=== PATIENT | male | born 1955 | race Two or more races ===

== ENCOUNTER 2019-03-15 12:05 | Inpatient (IN) | payer MEDICARE, OTHER ==
[~2019-03-15] VITALS: Ht 170.2 cm; Wt 65.8 kg
[~2019-03-15 12:05] MED LIST: CARV12.545 PO; MINO2.5T19 PO
[2019-03-15 15:24] LABS: BASOPHILS % 0.5 % (0.0-2.0); EOSINOPHILS % 5.2 % (0.0-5.0); HEMATOCRIT. 32.2 % (42.0-52.0); HEMOGLOBIN. 10.7 g/dL (14.0-18.0); LYMPHOCYTES % 20.7 % (20.0-50.0); MEAN CORPUSCULAR HEMOGLOBIN 31.5 pg (28.0-32.0); MEAN CORPUSCULAR VOLUME 94.8 fL (80.0-94.0); MEAN PLATELET VOLUME 9.3 fl (7.4-10.4); MONOCYTES % 9.4 % (2.0-8.0); NEUTROPHILS % 64.2 % (40.0-76.0); PLATELET 290 x1000/uL (130-400); RED CELL DISTRIBUTION WIDTH 15.7 % (11.6-14.6)
[2019-03-15 15:29] LABS: CHLORIDE 101 mEq/L (98-107)
[2019-03-15 15:36] LABS: ETHANOL BLOOD < 10 mg/dL
[2019-03-15] MEDS ORDERED: LABETALOL 5MG/ML SYR 20 MG/4 ML SYRINGE IV ONE (16:45)
[2019-03-15] MEDS ORDERED: ONDANSETRON HCL 4MG/2ML INJ IV PRN (18:45)
[2019-03-15] MEDS ORDERED: DEXTROSE 50% WATER 50ML SYRINGE IV PRN (18:45)
[2019-03-15] MEDS ORDERED: GUAIFENESIN 200MG/10ML SUGAR FREE UDC PO PRN (18:45)
[2019-03-15] MEDS ORDERED: MAGNESIUM/ALUMINUM HYDROXIDE/SIMETHICONE 30ML UDC PO PRN (18:45)
[2019-03-15] MEDS ORDERED: HYDROCODONE/ACETAMINOPHEN 5/325MG TABLET PO PRN (18:45)
[2019-03-15] MEDS ORDERED: ACETAMINOPHEN 325MG TABLET PO PRN (18:45)
[2019-03-15] MEDS ORDERED: CLONIDINE 0.1MG TABLET PO PRN (18:45)
[2019-03-15] MEDS ORDERED: DOCUSATE SODIUM 100MG CAPSULE PO PRN (18:45)
[2019-03-15] MEDS ORDERED: IPRATROPIUM/ALBUTEROL 0.5-3(2.5)MG/3ML NEB NEB PRN (18:45)
[2019-03-15] MEDS ORDERED: ACETAMINOPHEN 650MG SUPP PR PRN (18:45)
[2019-03-15] MEDS ORDERED: MINOXIDIL 2.5MG TABLET PO NR (19:00)
[2019-03-15] MEDS ORDERED: CARVEDILOL 12.5MG TABLET PO NR (19:00)
[2019-03-15] MEDS ORDERED: HYDRALAZINE 20MG/ML VIAL IV PRN (19:15)
[2019-03-15] MEDS ORDERED: AMLODIPINE 5MG TABLET PO NR (23:00)
[2019-03-15] MEDS: LORAZEPAM 0.5MG TABLET PO PRN (23:00)
[2019-03-15] MEDS ORDERED: HYDRALAZINE 20MG/ML VIAL IV NR (23:30)
[2019-03-16 01:05] LABS: CREATINE KINASE MB FRACTION 5.6 ng/mL (0.5-3.6)
[2019-03-16 01:42] VITALS: BP 146/78
[2019-03-16] MEDS: DIPHENHYDRAMINE 50MG/ML VIAL IV PRN (02:35)
[2019-03-16] MEDS ORDERED: ATOR20TA65 MT (02:49)
[2019-03-16] MEDS ORDERED: LABE100T5 MT (02:49)
[2019-03-16] MEDS ORDERED: CALC667C MT (02:49)
[2019-03-16] MEDS ORDERED: POTA20TA82 MT (02:49)
[2019-03-16] MEDS ORDERED: FAMO20TA8 MT (02:49)
[2019-03-16] MEDS ORDERED: ASPI-1497 MT (02:49)
[2019-03-16] MEDS ORDERED: AMLO10TA80 MT (02:49)
[2019-03-16] MEDS ORDERED: LISI-604 MT (02:49)
[2019-03-16] MEDS ORDERED: ERGO400C MT (02:49)
[2019-03-16 04:26] VITALS: BP 128/55
[2019-03-16] MEDS: BLOOD SUGAR DIAGNOSTIC STRIP TEST SCH ×4 (06:13→21:20)
[2019-03-16] MEDS: HYDRALAZINE HCL 50MG TABLET PO SCH ×3 (06:26→22:00)
[2019-03-16] MEDS: INSULIN LISPRO 100 UNITS/ML SUBCUT SCH ×4 (06:58→21:00)
[2019-03-16] MEDS ORDERED: CALCIUM ACETATE 667MG CAPSULE PO SCH (07:40)
[2019-03-16 08:00] VITALS: BP 137/54
[2019-03-16] MEDS: CARVEDILOL 12.5MG TABLET PO SCH ×2 (09:39→20:39)
[2019-03-16] MEDS: AMLODIPINE 5MG TABLET PO SCH ×2 (09:39→20:40)
[2019-03-16] MEDS: MINOXIDIL 2.5MG TABLET PO SCH ×2 (09:39→17:00)
[2019-03-16 12:00] VITALS: BP 133/52
[2019-03-16] MEDS ORDERED: CALCIUM ACETATE 667 MG TABLET PO SCH (13:30)
[2019-03-16 16:00] VITALS: BP 104/49
[2019-03-16 16:04] LABS: BASOPHILS % 0.4 % (0.0-2.0); EOSINOPHILS % 7.5 % (0.0-5.0); HEMATOCRIT. 37.7 % (42.0-52.0); HEMOGLOBIN. 12.1 g/dL (14.0-18.0); MEAN CORPUSCULAR HEMOGLOBIN 31.1 pg (28.0-32.0); MEAN CORPUSCULAR VOLUME 97.1 fL (80.0-94.0); MEAN PLATELET VOLUME 8.8 fl (7.4-10.4); MONOCYTES % 6.9 % (2.0-8.0); NEUTROPHILS % 66.2 % (40.0-76.0); PLATELET 341 x1000/uL (130-400); RED BLOOD CELL COUNT 3.88 mill/uL (4.7-6.1); RED CELL DISTRIBUTION WIDTH 15.5 % (11.6-14.6)
[2019-03-16 16:14] LABS: CHLORIDE 101 mEq/L (98-107)
[2019-03-16 16:18] LABS: PHOSPHORUS 5.4 mg/dL (2.5-4.9)
[2019-03-16 16:19] LABS: LDL CHOLESTEROL 71 mg/dL (5-100)
[2019-03-16 16:21] LABS: CREATINE KINASE 594 IU/L (39-308); HDL CHOLESTEROL 56 mg/dL (40-59); T4 FREE 1.12 ng/dL (0.76-1.46); TOTAL IRON BINDING CAPACITY 185 ug/dL (250-450)
[2019-03-16 16:23] LABS: CREATINE KINASE MB FRACTION 7.6 ng/mL (0.5-3.6)
[2019-03-16 17:14] LABS: VITAMIN B12 SERUM 391 pg/mL (211-911)
[2019-03-16] MEDS ORDERED: POTASSIUM CHLORIDE 20MEQ TABLET SR PO NR (17:30)
[2019-03-16] MEDS: CALCIUM ACETATE 667 MG TABLET PO SCH (18:27)
[2019-03-16] MEDS ORDERED: POTASSIUM CHLORIDE INJ 40 MEQ in DEXT 5% WATER 500 ML IV NR (18:30)
[2019-03-16 20:00] VITALS: BP 101/66
[2019-03-16] MEDS: MIRTAZAPINE 15MG TABLET PO SCH (20:39)
[2019-03-17] VITALS: BP 102/45
[2019-03-17 04:00] VITALS: BP 123/48
[2019-03-17] MEDS: HYDRALAZINE HCL 50MG TABLET PO SCH ×3 (06:49→22:00)
[2019-03-17] MEDS: BLOOD SUGAR DIAGNOSTIC STRIP TEST SCH ×4 (06:49→20:32)
[2019-03-17] MEDS: INSULIN LISPRO 100 UNITS/ML SUBCUT SCH ×4 (06:54→20:38)
[2019-03-17 07:09] LABS: BASOPHILS % 0.5 % (0.0-2.0); EOSINOPHILS % 6.6 % (0.0-5.0); HEMATOCRIT. 31.2 % (42.0-52.0); HEMOGLOBIN. 10.3 g/dL (14.0-18.0); LYMPHOCYTES % 17.3 % (20.0-50.0); MEAN CORPUSCULAR HEMOGLOBIN 31.9 pg (28.0-32.0); MEAN CORPUSCULAR VOLUME 96.7 fL (80.0-94.0); MEAN PLATELET VOLUME 8.5 fl (7.4-10.4); NEUTROPHILS % 66.6 % (40.0-76.0); PLATELET 332 x1000/uL (130-400); RED BLOOD CELL COUNT 3.23 mill/uL (4.7-6.1); RED CELL DISTRIBUTION WIDTH 15.5 % (11.6-14.6)
[2019-03-17 08:00] VITALS: BP 118/63
[2019-03-17] MEDS: ASPIRIN 81MG TABLET PO SCH (09:50)
[2019-03-17] MEDS: CALCIUM ACETATE 667 MG TABLET PO SCH ×3 (09:50→17:12)
[2019-03-17] MEDS: AMLODIPINE 5MG TABLET PO SCH ×2 (09:51→20:31)
[2019-03-17] MEDS: CARVEDILOL 12.5MG TABLET PO SCH ×2 (09:51→20:27)
[2019-03-17] MEDS: POTASSIUM CHLORIDE 10MEQ TABLET SR PO SCH (09:51)
[2019-03-17] MEDS: MINOXIDIL 2.5MG TABLET PO SCH ×2 (09:52→17:00)
[2019-03-17 12:00] VITALS: BP 99/51
[2019-03-17 16:00] VITALS: BP 100/53
[2019-03-17 20:00] VITALS: BP 94/48
[2019-03-17] MEDS: ATORVASTATIN CALCIUM 20MG TABLET PO SCH (20:36)
[2019-03-17] MEDS: MIRTAZAPINE 15MG TABLET PO SCH (20:36)
[2019-03-18] VITALS: BP 107/51
[2019-03-18 04:00] VITALS: BP 127/82
[2019-03-18] MEDS: HYDRALAZINE HCL 50MG TABLET PO SCH ×2 (06:00→13:00)
[2019-03-18] MEDS: BLOOD SUGAR DIAGNOSTIC STRIP TEST SCH ×4 (07:10→20:55)
[2019-03-18 07:15] LABS: BASOPHILS % 0.6 % (0.0-2.0); EOSINOPHILS % 6.6 % (0.0-5.0); HEMATOCRIT. 27.9 % (42.0-52.0); HEMOGLOBIN. 9.3 g/dL (14.0-18.0); LYMPHOCYTES % 20.1 % (20.0-50.0); MEAN CORPUSCULAR HEMOGLOBIN 32.3 pg (28.0-32.0); MEAN CORPUSCULAR VOLUME 96.4 fL (80.0-94.0); MEAN PLATELET VOLUME 8.1 fl (7.4-10.4); MONOCYTES % 12.7 % (2.0-8.0); PLATELET 289 x1000/uL (130-400); RED BLOOD CELL COUNT 2.89 mill/uL (4.7-6.1); RED CELL DISTRIBUTION WIDTH 15.8 % (11.6-14.6)
[2019-03-18] MEDS: INSULIN LISPRO 100 UNITS/ML SUBCUT SCH ×4 (07:40→20:55)
[2019-03-18] MEDS: CALCIUM ACETATE 667 MG TABLET PO SCH ×3 (07:40→17:25)
[2019-03-18] MEDS ORDERED: LIDOCAINE HCL 1% 20ML VIAL (Pyxis) INJ ONE (07:57)
[2019-03-18 08:00] VITALS: BP 140/53
[2019-03-18] MEDS: AMLODIPINE 5MG TABLET PO SCH ×2 (09:00→21:00)
[2019-03-18] MEDS: ASPIRIN 81MG TABLET PO SCH (09:00)
[2019-03-18] MEDS: CARVEDILOL 12.5MG TABLET PO SCH ×2 (09:00→21:00)
[2019-03-18] MEDS: MINOXIDIL 2.5MG TABLET PO SCH ×2 (09:00→17:26)
[2019-03-18] MEDS: POTASSIUM CHLORIDE 10MEQ TABLET SR PO SCH (09:00)
[2019-03-18 12:00] VITALS: BP 105/61
[2019-03-18] MEDS: LACTULOSE 20G/30ML UDC PO SCH (13:12)
[2019-03-18 16:00] VITALS: BP 112/64
[2019-03-18] MEDS: LORAZEPAM 0.5MG TABLET PO PRN (17:27)
[2019-03-18] MEDS: ATORVASTATIN CALCIUM 20MG TABLET PO SCH (21:00)
[2019-03-18 21:12] VITALS: BP 118/54
[2019-03-19] VITALS: BP 120/60
[2019-03-19] MEDS: LACTULOSE 20G/30ML UDC PO SCH ×4 (00:05→20:51)
[2019-03-19] MEDS: HYDRALAZINE HCL 50MG TABLET PO SCH ×4 (00:05→22:00)
[2019-03-19 04:00] VITALS: BP 116/70
[2019-03-19] MEDS: BLOOD SUGAR DIAGNOSTIC STRIP TEST SCH ×4 (05:53→20:51)
[2019-03-19] MEDS: INSULIN LISPRO 100 UNITS/ML SUBCUT SCH ×4 (07:40→21:46)
[2019-03-19 08:00] VITALS: BP 107/36
[2019-03-19] MEDS: CARVEDILOL 12.5MG TABLET PO SCH ×2 (08:55→20:45)
[2019-03-19] MEDS: MINOXIDIL 2.5MG TABLET PO SCH ×2 (08:55→16:27)
[2019-03-19] MEDS: AMLODIPINE 5MG TABLET PO SCH ×2 (08:55→20:45)
[2019-03-19] MEDS: POTASSIUM CHLORIDE 10MEQ TABLET SR PO SCH (08:56)
[2019-03-19] MEDS: CALCIUM ACETATE 667 MG TABLET PO SCH ×3 (08:57→17:37)
[2019-03-19] MEDS: ASPIRIN 81MG TABLET PO SCH (08:57)
[2019-03-19 09:44] LABS: BASOPHILS % 0.7 % (0.0-2.0); EOSINOPHILS % 5.8 % (0.0-5.0); HEMATOCRIT. 29.3 % (42.0-52.0); HEMOGLOBIN. 9.6 g/dL (14.0-18.0); LYMPHOCYTES % 19.3 % (20.0-50.0); MEAN CORPUSCULAR VOLUME 97.4 fL (80.0-94.0); MEAN PLATELET VOLUME 8.1 fl (7.4-10.4); MONOCYTES % 13.7 % (2.0-8.0); NEUTROPHILS % 60.5 % (40.0-76.0); PLATELET 298 x1000/uL (130-400); RED BLOOD CELL COUNT 3.01 mill/uL (4.7-6.1); RED CELL DISTRIBUTION WIDTH 15.8 % (11.6-14.6)
[2019-03-19 12:25] VITALS: BP 112/52
[2019-03-19 15:27] LABS: HEPATITIS B SURFACE AB 12.5 mIU/mL
[2019-03-19 15:38] LABS: HEPATITIS B SURFACE ANTIGEN NEGATIVE
[2019-03-19 16:00] VITALS: BP 107/42
[2019-03-19 16:07] LABS: HEPATITIS A AB IGM NEGATIVE (NEGATIVE)
[2019-03-19 20:00] VITALS: BP 126/52
[2019-03-19] MEDS: ATORVASTATIN CALCIUM 20MG TABLET PO SCH (20:45)
[2019-03-19] MEDS: DIPHENHYDRAMINE 50MG/ML VIAL IV PRN (21:45)
[2019-03-20] VITALS: BP 90/46
[2019-03-20] MEDS: LORAZEPAM 0.5MG TABLET PO PRN (01:46)
[2019-03-20] MEDS: DIPHENHYDRAMINE 50MG/ML VIAL IV PRN (03:23)
[2019-03-20 04:00] VITALS: BP 137/70
[2019-03-20] MEDS: HALOPERIDOL LACTATE 5MG/ML VIAL IM PRN ×2 (04:33→22:12)
[2019-03-20] MEDS: HYDRALAZINE HCL 50MG TABLET PO SCH ×4 (05:29→22:14)
[2019-03-20] MEDS: LACTULOSE 20G/30ML UDC PO SCH ×3 (05:29→22:00)
[2019-03-20] MEDS: BLOOD SUGAR DIAGNOSTIC STRIP TEST SCH ×4 (06:19→21:00)
[2019-03-20] MEDS: INSULIN LISPRO 100 UNITS/ML SUBCUT SCH ×5 (07:24→21:00)
[2019-03-20 08:27] VITALS: BP 124/52
[2019-03-20] MEDS: CALCIUM ACETATE 667 MG TABLET PO SCH ×4 (08:54→17:16)
[2019-03-20] MEDS: AMLODIPINE 5MG TABLET PO SCH ×2 (08:54→22:15)
[2019-03-20] MEDS: ASPIRIN 81MG TABLET PO SCH ×2 (08:54→22:13)
[2019-03-20] MEDS: POTASSIUM CHLORIDE 10MEQ TABLET SR PO SCH (08:54)
[2019-03-20] MEDS: MINOXIDIL 2.5MG TABLET PO SCH ×2 (08:54→17:19)
[2019-03-20] MEDS: CARVEDILOL 12.5MG TABLET PO SCH ×2 (08:55→22:15)
[2019-03-20 12:02] VITALS: BP 148/64
[2019-03-20 16:15] VITALS: BP 148/66
[2019-03-20 20:00] VITALS: BP 141/60
[2019-03-20] MEDS: ATORVASTATIN CALCIUM 20MG TABLET PO SCH (22:13)
[2019-03-21] VITALS (7 sets, daily range): BP systolic 105–136; BP diastolic 41–68
[2019-03-21] MEDS: CALCIUM ACETATE 667 MG TABLET PO SCH ×4 (07:40→17:57)
[2019-03-21] MEDS: INSULIN LISPRO 100 UNITS/ML SUBCUT SCH ×4 (07:40→21:00)
[2019-03-21] MEDS: AMLODIPINE 5MG TABLET PO SCH ×2 (09:00→20:49)
[2019-03-21] MEDS: MINOXIDIL 2.5MG TABLET PO SCH ×2 (09:00→17:58)
[2019-03-21] MEDS: CARVEDILOL 12.5MG TABLET PO SCH ×2 (09:00→20:49)
[2019-03-21] MEDS: POTASSIUM CHLORIDE 10MEQ TABLET SR PO SCH ×2 (09:00→09:39)
[2019-03-21] MEDS: HALOPERIDOL LACTATE 5MG/ML VIAL IM PRN ×2 (10:15→10:45)
[2019-03-21] MEDS ORDERED: LORAZEPAM 2MG/ML CPJ IV SCH (10:45)
[2019-03-21] MEDS: BLOOD SUGAR DIAGNOSTIC STRIP TEST SCH ×3 (12:16→19:59)
[2019-03-21] MEDS: LACTULOSE 20G/30ML UDC PO SCH ×2 (14:00→21:54)
[2019-03-21] MEDS: HYDRALAZINE HCL 50MG TABLET PO SCH ×2 (14:00→22:00)
[2019-03-21] MEDS: ATORVASTATIN CALCIUM 20MG TABLET PO SCH (20:49)
[2019-03-21] MEDS: RISPERIDONE 1MG TABLET PO SCH (21:54)
[2019-03-22] VITALS: BP 118/54
[2019-03-22 04:00] VITALS: BP 136/54
[2019-03-22] MEDS: LACTULOSE 20G/30ML UDC PO SCH ×5 (06:00→22:48)
[2019-03-22] MEDS: HYDRALAZINE HCL 50MG TABLET PO SCH ×4 (06:00→22:47)
[2019-03-22] MEDS: BLOOD SUGAR DIAGNOSTIC STRIP TEST SCH ×4 (06:30→20:24)
[2019-03-22] MEDS: INSULIN LISPRO 100 UNITS/ML SUBCUT SCH ×4 (06:33→20:46)
[2019-03-22 08:00] VITALS: BP 105/68
[2019-03-22] MEDS: CALCIUM ACETATE 667 MG TABLET PO SCH ×4 (08:29→17:40)
[2019-03-22] MEDS: MINOXIDIL 2.5MG TABLET PO SCH ×3 (09:00→17:36)
[2019-03-22] MEDS: AMLODIPINE 5MG TABLET PO SCH ×2 (09:00→20:23)
[2019-03-22] MEDS: ASPIRIN 81MG TABLET PO SCH (09:40)
[2019-03-22] MEDS: RISPERIDONE 1MG TABLET PO SCH ×2 (09:40→20:23)
[2019-03-22] MEDS: POTASSIUM CHLORIDE 10MEQ TABLET SR PO SCH (09:41)
[2019-03-22] MEDS: CARVEDILOL 12.5MG TABLET PO SCH ×2 (09:41→20:24)
[2019-03-22 12:00] VITALS: BP 120/67
[2019-03-22 16:00] VITALS: BP 115/65
[2019-03-22 20:00] VITALS: BP 112/55
[2019-03-22] MEDS: ATORVASTATIN CALCIUM 20MG TABLET PO SCH (20:22)
[2019-03-23] VITALS (7 sets, daily range): BP systolic 86–153; BP diastolic 51–77
[2019-03-23] MEDS: HALOPERIDOL LACTATE 5MG/ML VIAL IM PRN ×2 (03:28→18:33)
[2019-03-23] MEDS: HYDRALAZINE HCL 50MG TABLET PO SCH ×3 (05:31→21:14)
[2019-03-23] MEDS: LACTULOSE 20G/30ML UDC PO SCH ×3 (05:31→21:14)
[2019-03-23] MEDS: BLOOD SUGAR DIAGNOSTIC STRIP TEST SCH ×4 (06:10→21:00)
[2019-03-23] MEDS: CALCIUM ACETATE 667 MG TABLET PO SCH ×4 (06:10→17:40)
[2019-03-23] MEDS: INSULIN LISPRO 100 UNITS/ML SUBCUT SCH ×4 (06:11→21:00)
[2019-03-23] MEDS: CARVEDILOL 12.5MG TABLET PO SCH ×2 (08:07→21:00)
[2019-03-23] MEDS: MINOXIDIL 2.5MG TABLET PO SCH ×2 (08:07→17:00)
[2019-03-23] MEDS: AMLODIPINE 5MG TABLET PO SCH ×2 (08:07→21:00)
[2019-03-23] MEDS: ASPIRIN 81MG TABLET PO SCH (09:00)
[2019-03-23] MEDS: RISPERIDONE 1MG TABLET PO SCH ×2 (09:00→21:00)
[2019-03-23] MEDS: POTASSIUM CHLORIDE 10MEQ TABLET SR PO SCH (09:00)
[2019-03-23] MEDS: LORAZEPAM 2MG/ML CPJ IV PRN (16:28)
[2019-03-23] MEDS: ATORVASTATIN CALCIUM 20MG TABLET PO SCH (21:00)
[2019-03-24] VITALS (7 sets, daily range): BP systolic 92–152; BP diastolic 42–74
[2019-03-24] MEDS: LACTULOSE 20G/30ML UDC PO SCH ×3 (05:09→22:20)
[2019-03-24] MEDS: HYDRALAZINE HCL 50MG TABLET PO SCH ×3 (05:10→22:20)
[2019-03-24 06:13] LABS: BASOPHILS % 0.4 % (0.0-2.0); EOSINOPHILS % 6.4 % (0.0-5.0); HEMATOCRIT. 28.6 % (42.0-52.0); HEMOGLOBIN. 9.6 g/dL (14.0-18.0); MEAN CORPUSCULAR HEMOGLOBIN 32.2 pg (28.0-32.0); MEAN CORPUSCULAR VOLUME 96.1 fL (80.0-94.0); MEAN PLATELET VOLUME 7.8 fl (7.4-10.4); MONOCYTES % 12.5 % (2.0-8.0); NEUTROPHILS % 61.7 % (40.0-76.0); PLATELET 260 x1000/uL (130-400); RED BLOOD CELL COUNT 2.97 mill/uL (4.7-6.1); RED CELL DISTRIBUTION WIDTH 15.1 % (11.6-14.6)
[2019-03-24] MEDS: BLOOD SUGAR DIAGNOSTIC STRIP TEST SCH ×4 (06:30→20:33)
[2019-03-24] MEDS: INSULIN LISPRO 100 UNITS/ML SUBCUT SCH ×4 (06:30→22:24)
[2019-03-24] MEDS: AMLODIPINE 5MG TABLET PO SCH ×2 (09:42→20:32)
[2019-03-24] MEDS: CARVEDILOL 12.5MG TABLET PO SCH ×2 (09:42→20:32)
[2019-03-24] MEDS: ASPIRIN 81MG TABLET PO SCH (09:42)
[2019-03-24] MEDS: MINOXIDIL 2.5MG TABLET PO SCH ×2 (09:43→17:00)
[2019-03-24] MEDS: RISPERIDONE 1MG TABLET PO SCH ×2 (09:44→20:33)
[2019-03-24] MEDS: CALCIUM ACETATE 667 MG TABLET PO SCH ×4 (09:44→17:17)
[2019-03-24] MEDS: POTASSIUM CHLORIDE 10MEQ TABLET SR PO SCH (09:44)
[2019-03-24] MEDS: ATORVASTATIN CALCIUM 20MG TABLET PO SCH (20:31)
[2019-03-24] MEDS: LORAZEPAM 2MG/ML CPJ IV PRN (23:40)
[2019-03-25 04:00] VITALS: BP 132/53
[2019-03-25] MEDS: HYDRALAZINE HCL 50MG TABLET PO SCH ×2 (05:56→13:49)
[2019-03-25] MEDS: BLOOD SUGAR DIAGNOSTIC STRIP TEST SCH ×3 (05:56→17:27)
[2019-03-25] MEDS: LACTULOSE 20G/30ML UDC PO SCH ×2 (05:56→13:23)
[2019-03-25] MEDS: INSULIN LISPRO 100 UNITS/ML SUBCUT SCH ×3 (06:35→17:29)
[2019-03-25] MEDS ORDERED: CALCITRIOL 0.25MCG CAPSULE PO SCH (09:00)
[2019-03-25] MEDS: CARVEDILOL 12.5MG TABLET PO SCH (09:00)
[2019-03-25] MEDS: AMLODIPINE 5MG TABLET PO SCH (09:00)
[2019-03-25] MEDS: MINOXIDIL 2.5MG TABLET PO SCH ×2 (09:00→17:32)
[2019-03-25] MEDS: ASPIRIN 81MG TABLET PO SCH (09:03)
[2019-03-25] MEDS: CALCIUM ACETATE 667 MG TABLET PO SCH ×3 (09:03→17:33)
[2019-03-25] MEDS: POTASSIUM CHLORIDE 10MEQ TABLET SR PO SCH (09:04)
[2019-03-25] MEDS: RISPERIDONE 1MG TABLET PO SCH (09:04)
[2019-03-25 12:00] VITALS: BP 121/57
[2019-03-25] MEDS ORDERED: RISP0.5T19 MT (13:23)
[2019-03-25 16:00] VITALS: BP 129/59
[2019-03-25 17:57] VITALS: BP 129/59
== END 2019-03-25 20:25 | disposition home or self-care (01) | DRG 70 ==
LOC: ER 12:05 → 8WST 16:41 → EDBEDREQ 16:48 → ENRESERV 22:00 → 8WST 03-17 06:44
PROVIDERS: ADMIT Internal Medicine; ATTEND Internal Medicine
PROC: 5A1D70Z Performance of Urinary Filtration, Intermittent, Less than 6 Hours Per Day (ICD-10-PCS; principal; 2019-03-18)
PROC: 02HV33Z Insertion of Infusion Device into Superior Vena Cava, Percutaneous Approach (ICD-10-PCS; 2019-03-18)
PROC: B5181ZA Fluoroscopy of Superior Vena Cava using Low Osmolar Contrast, Guidance (ICD-10-PCS; 2019-03-18)
PROC: B548ZZA Ultrasonography of Superior Vena Cava, Guidance (ICD-10-PCS; 2019-03-18)
PROC: 5A1D70Z Performance of Urinary Filtration, Intermittent, Less than 6 Hours Per Day (ICD-10-PCS; 2019-03-19)
PROC: 5A1D70Z Performance of Urinary Filtration, Intermittent, Less than 6 Hours Per Day (ICD-10-PCS; 2019-03-21)
PROC: 5A1D70Z Performance of Urinary Filtration, Intermittent, Less than 6 Hours Per Day (ICD-10-PCS; 2019-03-23)
PROC: 02PYX3Z Removal of Infusion Device from Great Vessel, External Approach (ICD-10-PCS; 2019-03-25)
DX: G93.41 Metabolic encephalopathy (principal); N18.6 End stage renal disease; I50.33 Acute on chronic diastolic (congestive) heart failure; I13.2 Hypertensive heart and chronic kidney disease with heart failure and with stage 5 chronic kidney disease, or end stage renal disease; E72.20 Disorder of urea cycle metabolism, unspecified; R41.3 Other amnesia; I16.0 Hypertensive urgency; I25.10 Atherosclerotic heart disease of native coronary artery without angina pectoris; E11.65 Type 2 diabetes mellitus with hyperglycemia; E11.319 Type 2 diabetes mellitus with unspecified diabetic retinopathy without macular edema; E11.22 Type 2 diabetes mellitus with diabetic chronic kidney disease; D64.9 Anemia, unspecified; E87.6 Hypokalemia; N62 Hypertrophy of breast; E78.5 Hyperlipidemia, unspecified; E11.40 Type 2 diabetes mellitus with diabetic neuropathy, unspecified; H54.62 Unqualified visual loss, left eye, normal vision right eye; I45.81 Long QT syndrome; Z87.891 Personal history of nicotine dependence; Z86.73 Personal history of transient ischemic attack (TIA), and cerebral infarction without residual deficits; Z99.2 Dependence on renal dialysis; Z79.84 Long term (current) use of oral hypoglycemic drugs; Z79.899 Other long term (current) drug therapy
CPT/HCPCS: 36415; 70551; 71045; 76937; 77001; 80048; 80053; 80061; 80320; 82140; 82306; 82550; 82553; 82607; 82962; 83036; 83540; 83550; 83735; 83880; 83970; 84100; 84439; 84443; 84484; 85025; 86592; 86705; 86706; 86709; 86803; 87340; 92523; 93005; 93306; 93970; 96374; 96375; 97162; 97166; 97530; 97535; 99285; C1752; J0360; J1200; J1630; J1815; J2060; J3480; J3490; J7040; J7060; G0480